=== PATIENT | female | born 1995 | race Caucasian/White ===

== ENCOUNTER 2018-10-27 21:47 | Emergency (ER) | payer MEDICAID ==
[~2018-10-27] VITALS: Ht 157.5 cm; Wt 68.0 kg
[2018-10-28] MEDS ORDERED: KETOROLAC 60MG/2ML VIAL IM ONE (01:00)
[2018-10-28 03:05] VITALS: BP 94/63
== END 2018-10-28 03:07 | disposition home or self-care (01) ==
LOC: ER 21:47
DX: S50.11XA Contusion of right forearm, initial encounter (principal); S60.011A Contusion of right thumb without damage to nail, initial encounter; V03.90XA Pedestrian on foot injured in collision with car, pick-up truck or van, unspecified whether traffic or nontraffic accident, initial encounter; Y93.9 Activity, unspecified; Y92.9 Unspecified place or not applicable
CPT/HCPCS: 73080; 73090; 73140; 81025; 96372; 99283; J1885